=== PATIENT | female | born 1970 | race Caucasian/White ===

== ENCOUNTER 2016-12-23 08:51 | Day surgery (SDC) | payer OTHER ==
[~2016-12-23 08:51] MED LIST: Lidocaine 1%/Sod Bicarbonate in NS 8.4% 1 ML Syringe PRN; Sodium Chloride 0.9% 10 ML Syringe FLUSH PRN
[2016-12-23] MEDS ORDERED: Lidocaine 1% with EPINEPHrine 1:100,000 20 ML MDV ONE (09:14)
[2016-12-23] MEDS ORDERED: Sodium Chloride 0.9% 50 ML SDV ONE (09:14)
[2016-12-23] MEDS: Lactated Ringers 1,000 ML IV SCH ×2 (09:15→15:29)
[2016-12-23] MEDS ORDERED: fentaNYL 100 MCG/2 ML SDV IVPUSH PRN (09:30)
[2016-12-23] MEDS ORDERED: Metoclopramide 10 MG/2 ML SDV IVPUSH PRN (09:30)
[2016-12-23] MEDS ORDERED: HYDROmorphone 0.5 MG/0.5 ML Syringe IVPUSH PRN (09:30)
[2016-12-23] MEDS ORDERED: Ondansetron 4 MG/2 ML SDV IVPUSH PRN ×2 (09:30→11:14)
--- NOTE | 2016-12-23 09:34 | PCM.PREANE ---
Preanesthetic Assessment - Anesthesia/Transfusion/Family Hx Anesthesia History: Prior Anesthesia Without Reaction Family History of Anesthesia Reaction: No Transfusion History: Unknown - Review of Systems General: No Symptoms Pulmonary: Other (asthma, last used inhaler 2 weeks ago with excercise) Cardiovascular: No Symptoms Gastrointestinal: No symptoms Neurological: No Symptoms Other: Reports: None - Physical Assessment NPO Status Date: 12/22/16 NPO Status Time: 22:00 Pulse: 65 O2 Sat by Pulse Oximetry: 96 Respiratory Rate: 16 Blood Pressure: 127/75 Temperature: 37.1 C Vital Signs: Last Vital Signs Temp 37.1 C 12/23/16 09:00 Pulse 74 12/23/16 09:00 Resp 16 12/23/16 09:00 BP 127/75 12/23/16 09:00 Pulse Ox 96 12/23/16 09:00 Weight: 101.151 kg ASA Class: 2 Mental Status: Alert & Oriented x3 Airway Class: Mallampati = 2 Dentition: Reports: Normal Dentition Thyro-Mental Finger Breadths: 3 Mouth Opening Finger Breadths: 3 ROM/Head Extension: Full Lungs: Clear to auscultation Cardiovascular: Regular Rate, Regular Rhythm - Lab Values: Laboratory Last Values WBC 8.89 K/mm3 (3.98-10.04) 12/22/16 10:40 RBC 4.46 M/mm3 (3.98-5.22) 12/22/16 10:40 Hgb 13.3 gm/L (11.2-15.7) 12/22/16 10:40 Hct 40.8 % (34.1-44.9) 12/22/16 10:40 MCV 91.5 fl (79.4-94.8) 12/22/16 10:40 MCH 29.8 pg (25.6-32.2) 12/22/16 10:40 MCHC 32.6 g/dl (32.2-35.5) 12/22/16 10:40 RDW Std Deviation 42.2 fL (36.4-46.3) 12/22/16 10:40 Plt Count 318 K/mm3 (182-369) 12/22/16 10:40 MPV 10.8 fl (9.4-12.3) 12/22/16 10:40 Neut % (Auto) 61.3 % (34.0-71.1) 12/22/16 10:40 Lymph % (Auto) 30.7 % (19.3-51.7) 12/22/16 10:40 [place] % (Auto) 6.1 % (4.7-12.5) 12/22/16 10:40 Eos % (Auto) 1.5 (0.7-5.8) 12/22/16 10:40 Baso % (Auto) 0.3 % (0.1-1.2) 12/22/16 10:40 Neut # (Auto) 5.45 K/mm3 (1.56-6.13) 12/22/16 10:40 Lymph # (Auto) 2.73 K/mm3 (1.18-3.74) 12/22/16 10:40 [place] # (Auto) 0.54 K/mm3 (0.24-0.36) H 12/22/16 10:40 Eos # (Auto) 0.13 K/mm3 (0.04-0.36) 12/22/16 10:40 Baso # (Auto) 0.03 K/mm3 (0.01-0.08) 12/22/16 10:40 Urine Color Yellow (Yellow) 12/22/16 10:40 Urine Appearance Clear (Clear) 12/22/16 10:40 Urine pH 6.0 (5.0-8.0) 12/22/16 10:40 Ur Specific [place] 1.020 (1.005-1.030) 12/22/16 10:40 Urine Protein Negative (Negative) 12/22/16 10:40 Urine Glucose (UA) Negative (Negative) 12/22/16 10:40 Urine Ketones Negative (Negative) 12/22/16 10:40 Urine Occult Blood Trace-intact (Negative) H 12/22/16 10:40 Urine Nitrite Negative (Negative) 12/22/16 10:40 Urine Bilirubin Negative (Negative) 12/22/16 10:40 Urine Urobilinogen 0.2 (0.2-1.0) 12/22/16 10:40 Ur Leukocyte Esterase Negative (Negative) 12/22/16 10:40 Urine HCG, Qual Negative (NEGATIVE) 12/22/16 10:40 Blood Type A POSITIVE 12/22/16 10:40 Gel Antibody Screen Negative 12/22/16 10:40 - Allergies Allergies/Adverse Reactions: Allergies Allergy/AdvReac Type Severity Reaction Status Date / Time ibuprofen Allergy Cannot Verified 12/22/16 13:51 Remember - Blood Blood Available: No Product(s) Available: None - Acknowledgements Anesthesia Type Planned: General Anesthesia Pt an Appropriate Candidate for the Planned Anesthesia: Yes Alternatives and Risks of Anesthesia Discussed w Pt/Guardian: Yes Pt/Guardian Understands and Agrees with Anesthesia Plan: Yes PreAnesthesia Questionnaire - SUBSTANCE USE Smoking Status *Q: Never Smoker Recreational Drug Use History: No - HOME MEDS Home Medications: Home Meds Fexofenadine/Pseudoephedrine [Ashley-D 12 Hour] 1 tab PO DAILY PRN 12/22/16 [ History] Norethindrone-E.estradiol-Iron [Microgestin Fe 1.5-30 Tab] 1 tab PO DAILY [History] Olopatadine HCl [Pataday] 1 drop EYEBOTH DAILY PRN 12/22/16 [History] valACYclovir HCl [Valtrex] 500 mg PO DAILY 12/22/16 [History] - CURRENT (IN HOUSE) MEDS Current Meds: Current Medications Lactated Ringer's (Ringers, Lactated) 1,000 mls @ 125 mls/hr IV ASDIRECTED AVERY Stop: 12/23/16 23:00 Last Admin: 12/23/16 09:15 Dose: 125 mls/hr Lidocaine/Sodium Bicarbonate (Buffered Lidocaine 1% In Ns 8.4%) 0.25 ml .XX ONETIME PRN PRN Reason: Prior to IV Start Stop: 12/23/16 18:00 Sodium Chloride (Saline Flush) 10 ml FLUSH ASDIRECTED PRN PRN Reason: Keep Vein Open Stop: 12/23/16 18:00 Discontinued Medications Lidocaine/Epinephrine (Xylocaine 1% With Epinephrine 1:100,000) Confirm Administered Dose 20 ml .ROUTE .STK-MED ONE Stop: 12/23/16 09:15 Sodium Chloride (Normal Saline) Confirm Administered Dose 50 ml .ROUTE .STK-MED ONE Stop: 12/23/16 09:15
[2016-12-23] MEDS ORDERED: Ondansetron 4 MG/2 ML SDV ONE (09:48)
[2016-12-23] MEDS ORDERED: Rocuronium 50 MG/5 ML Vial ONE (09:48)
[2016-12-23] MEDS ORDERED: ceFAZolin 1 GM Vial ONE ×2 (09:48)
[2016-12-23] MEDS ORDERED: Midazolam 1 MG/ML 2 ML SDV ONE (09:48)
[2016-12-23] MEDS ORDERED: Dexamethasone 4 MG/ML SDV ONE ×2 (09:48→10:47)
[2016-12-23] MEDS ORDERED: fentaNYL 250 MCG/5 ML SDV ONE (09:48)
[2016-12-23] MEDS ORDERED: Propofol 200 MG/20 ML SDV ONE (09:48)
[2016-12-23] MEDS ORDERED: HYDROmorphone 1 MG/ML Syringe ONE ×2 (10:39→10:54)
[2016-12-23] MEDS ORDERED: Lactated Ringers 1,000 ML ONE (10:47)
[2016-12-23] MEDS ORDERED: Acetaminophen/oxyCODONE 325-5 MG Tab PO PRN (11:14)
--- NOTE | 2016-12-23 11:20 | PCM.OPNOTE ---
- General Post-Op/Procedure Note Date of Surgery/Procedure: 12/23/16 Operative Procedure(s): Total vaginal hysterectomy Findings: Uterus is upper limits normal size. Ovaries bilaterally looked normal. Fallopian tubes were very scarred and only small portions for remaining. This felt to be secondary to tubal ligation. There up on the pelvic sidewalls and inaccessible from the vaginal route. Pre Op Diagnosis: 1. Menorrhagia. 2. Dysmenorrhea Post-Op Diagnosis: Same Anesthesia Technique: General ET tube Other Anesthesia Type: Lidocaine quarter percent with [id number] mL total. Primary Surgeon: Geoffrey Johnston Secondary Surgeon: De Pruett Pathology: Uterus Fluid Replacement, Intraop: 1,400 EBL in mLs: 30 Complications: None Condition: Good Free Text/Narrative:: Surgery duration: 30 minutes Specimens: Uterus Complications: None Procedure: Procedure: The patient was placed in supine position on the operating table. General endotracheal anesthesia was accomplished. After positioning, and adequate prep and drape, the procedure was then performed. Sterile speculum was placed in the vagina and cervix was visualized. Cervix was injected with [ lidocaine quarter percent with epinephrine]. [20 cc] used. A full circumference incision was made in the cervical epithelium. The bladder was pushed well back off cervix. Posterior cul-de-sac was then entered sharply without problems. Left uterosacral was crossclamped with a LigaSure vessel closure system. The left uterosacral and then the right uterosacral ligament pedicles were developed using the LigaSure system. The anterior cul-de-sac was then entered without problems and the uterine vasculature, cardinal ligament and broad ligament then developed using LigaSure vessel closure system. The uterus was inverted at this time and upper broad ligament/fallopian tube pedicles were crossclamped with Dg clamps. Specimen was totally removed. Both these pedicles were then secured with LigaSure vessel closure system. Left and right fallopian tube were significantly reduced in size which is felt to be due to tubal ligation. The patient was found to be hemostatically intact at this time, both ovaries appeared normal and were left in place. A pursestring suture was and placed in the peritoneal cavity externalizing pedicles in case of bleeding. Vaginal cuff was closed with running locked suture of 0 Monocryl. Patient was returned to supine position and awakened from general endotracheal anesthesia. She tolerated the procedure was then left the operating room in satisfactory condition.
--- NOTE | 2016-12-23 11:25 | PCM.POSTAN ---
POST ANESTHESIA ASSESSMENT - MENTAL STATUS Mental Status: alert, oriented - VITAL SIGNS Pulse Rate: 102 SaO2: 100 Resp Rate: 16 Blood Pressure: 143/62 Temperature: 36.4 C - RESPIRATORY Respiratory Status: respiratory rate WNL, airway patent, O2 saturation stable, supplemental oxygen - CARDIOVASCULAR CV Status: pulse rate WNL, blood pressure stable - GASTROINTESTINAL GI Status: no symptoms - PAIN Pain Score: 3 (pain meds given) - POST OP HYDRATION Hydration Status: adequate & stable
[2016-12-23] MEDS ORDERED: Haloperidol Lactate 5 MG/ML SDV IVPUSH ONE (14:11)
[2016-12-23] MEDS ORDERED: Scopolamine 1.5 MG Transdermal Patch TOP ONE (14:11)
[2016-12-23 16:17] VITALS: BP 141/77
== END 2016-12-23 16:45 | disposition home or self-care (01) ==
LOC: JD.SDS 08:51
PROVIDERS: ATTEND Obstetrics & Gynecology
DX: N72 Inflammatory disease of cervix uteri (principal); N87.0 Mild cervical dysplasia; N80.0 Endometriosis of uterus; Z88.8 Allergy status to other drugs, medicaments and biological substances; J45.909 Unspecified asthma, uncomplicated; E78.00 Pure hypercholesterolemia, unspecified; Z79.899 Other long term (current) drug therapy; Z98.890 Other specified postprocedural states; Z90.49 Acquired absence of other specified parts of digestive tract; Z98.51 Tubal ligation status
CPT/HCPCS: 36415; 58260; 81003; 81025; 85025; 86850; 86900; 86901; 88307; A9270; J0690; J1100; J1170; J1630; J2250; J2405; J2765; J3010; J7120; 00944; J2704